=== PATIENT | male | born 1970 | race Caucasian/White ===

== ENCOUNTER 2018-05-24 10:02 | Emergency (ER) | payer BC ==
[2018-05-24 11:06] VITALS: BP 123/90
--- NOTE | 2018-05-24 11:13 | UC ---
General HPI - HPI Summary HPI Summary: pt is c/o some "tingling" to the tip of his penis(describes urethral meatus). he is concerned about an std because he has a new partner. he would like tx and to be tested for syphilis plus chlamydia but not HIV. onset 5 days ago. - History of Current Complaint Chief Complaint: UCSTDScreening Stated Complaint: PERSONAL Time Seen by Provider: 05/24/18 11:01 Hx Obtained From: Patient Pain Intensity: 0 Associated Signs & Symptoms: Positive: Dysuria. Negative: Abdominal Pain, Fever - Allergy/Home Medications Allergies/Adverse Reactions: Allergies Allergy/AdvReac Type Severity Reaction Status Date / Time No Known Allergies Allergy Verified 05/24/18 11:01 PMH/Surg Hx/FS Hx/Imm Hx Previously Healthy: Yes - Surgical History Surgical History: Yes Surgery Procedure, Year, and Place: left knee arthroscopy. left inguinal hernai repair in high school - Family History Known Family History: Positive: Non-Contributory - Social History Alcohol Use: Occasionally Substance Use Type: None Smoking Status (MU): Current Some Day Smoker Type: Smokeless Tobacco Amount Used/How Often: occasional use Review of Systems All Other Systems Reviewed And Are Negative: Yes Physical Exam Triage Information Reviewed: Yes Appearance: Well-Appearing Vital Signs: Initial Vital Signs Temp 97.9 F 05/24/18 11:02 Pulse 79 05/24/18 11:02 Resp 15 05/24/18 11:02 BP 123/90 05/24/18 11:02 Pulse Ox 100 05/24/18 11:02 Vital Signs Reviewed: Yes Eyes: Positive: Conjunctiva Clear ENT: Positive: Normal ENT inspection Neck: Positive: Supple Respiratory: Positive: Lungs clear Cardiovascular: Positive: RRR Abdomen Description: Positive: Nontender, No Organomegaly, Soft Bowel Sounds: Positive: Present Male Genital Exam: Positive: Normal Genitalia. 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 will tx preemptively for both as well. - Diagnoses Provider Diagnosis: Concern about STD in male without diagnosis Discharge - Sign-Out/Discharge Documenting (check all that apply): Patient Departure All imaging exams completed and their final reports reviewed: No Studies - Discharge Plan Condition: Stable Disposition: HOME Patient Education Materials: Sexually Transmitted Diseases (ED) Referrals: Rosa Maria Alonso MD [Primary Care Provider] - If Needed - Billing Disposition and Condition Condition: STABLE Disposition: Home
[2018-05-24] MEDS ORDERED: cefTRIAXone VIAL(*) 250 MG VIAL IM ONE (11:18)
[2018-05-24] MEDS ORDERED: Azithromycin TAB* 250 MG PO ONE (11:19)
[2018-05-24] MEDS ORDERED: Lidocaine 1% MPF* 2 ML VIAL INJ ONE (11:19)
[2018-05-25 11:32] LABS: Neisseria gonorrhoeae (GC) RNA Negative (Negative)
== END 2018-05-24 11:57 | disposition home or self-care (01) ==
LOC: UCCORT 10:02
DX: N48.89 Other specified disorders of penis (principal); F17.290 Nicotine dependence, other tobacco product, uncomplicated
CPT/HCPCS: 36415; 86592; 87491; 87591; 96372; 99202; A9270-GY; G0463; J0696